=== PATIENT | female | born 1950 | race African-American/Black ===

== ENCOUNTER 2017-05-28 22:09 | Emergency (ER) | payer MEDICARE, OTHER ==
[~2017-05-28] VITALS: Ht 157.5 cm; Wt 58.5 kg
[~2017-05-28 22:09] MED LIST: ALBUAER3 IN; AML5T PO; ASPI-498 OR; CLIN1CAP4 PO; DOCU-137 PO; DOCU60SY2 PO; FUR40T PO; LIS10T PO; LORA-352 PO; LORA1TAB12 PO; MET50T PO; NOR10T PO; PANT1INJ3 PO; POT20T PO; SITA100T7 PO
[2017-05-28 22:33] LABS: Basophils # (auto) 0 uL; Basophils % (auto) 0.6 % (0.0-2.0); CONDITION Y; Eosinophils # (auto) 0.2 uL; Eosinophils % (auto) 2.7 % (0.0-7.0); Hematocrit 47.4 % (36.0-46.0); Lymphocytes % (auto) 24.5 % (10.0-50.0); Mean Corpuscular Hemoglobin 30.5 pg (28.0-32.0); Mean Corpuscular Hgb Conc. 33.7 g/dL (32.0-36.0); Mean Corpuscular Volume 90.5 fL (80.0-100.0); Mean Platelet Volume 8.7 fL (7.4-10.4); Monocytes # (auto) 0.5 uL; Monocytes % (auto) 6.2 % (0.0-12.0); Neutrophils # (auto) 5.4 uL; Platelet Count (auto) 298 10^3/uL (140-450); Red Cell Distribution Width 14.9 % (11.6-16.0); White Blood Cell 8.1 10^3/uL (4.4-10.8)
[2017-05-28 22:56] LABS: Albumin 3.2 g/dL (3.4-5.0); Anion Gap 8 (5-15); Aspartate Aminotransferase 10 U/L (15-37); BUN/Creatinine Ratio 21.9; Blood Urea Nitrogen 16 mg/dL (7-18); Calcium 8.5 mg/dL (8.5-10.1); Carbon Dioxide 25 mmol/L (21-32); Chloride 108 mmol/L (98-107); GFR African American 102 mL/min; GFR Non-African American 85 mL/min; Glucose 179 mg/dL (74-106); Potassium 3.9 mmol/L (3.5-5.1); Sodium 141 mmol/L (136-145)
[2017-05-28] MEDS ORDERED: SODIUM CHLORIDE 0.9% 1,000 ML IV ONE (23:00)
[2017-05-28] MEDS ORDERED: MORPHINE SULF INJ 2 MG/ML SYRINGE 1ML IV ONE (23:00)
[2017-05-28] MEDS ORDERED: ONDANSETRON HCL 4 MG/2 ML VIAL IV ONE (23:00)
[2017-05-28 23:01] LABS: Alkaline Phosphatase 79 U/L (45-117); Bilirubin, Total 0.5 mg/dL (0.2-1.0); Total Protein 6.7 g/dL (6.4-8.2)
[2017-05-28 23:02] LABS: B-Type Natriuretic Peptide 118.46 pg/mL (0-100)
[2017-05-28 23:04] LABS: Temperature: 23.5 C (20.0-25.0)
[2017-05-28 23:38] LABS: Amylase 39 U/L (25-115)
[2017-05-29 00:39] VITALS: BP 144/90
== END 2017-05-29 02:01 | disposition home or self-care (01) ==
LOC: ER 22:11
DX: K59.00 Constipation, unspecified (principal); R07.89 Other chest pain; K21.9 Gastro-esophageal reflux disease without esophagitis; I11.0 Hypertensive heart disease with heart failure; I50.9 Heart failure, unspecified; E11.9 Type 2 diabetes mellitus without complications; R06.02 Shortness of breath; M19.90 Unspecified osteoarthritis, unspecified site; J44.9 Chronic obstructive pulmonary disease, unspecified; I25.10 Atherosclerotic heart disease of native coronary artery without angina pectoris; Z90.710 Acquired absence of both cervix and uterus; F17.210 Nicotine dependence, cigarettes, uncomplicated; Z79.82 Long term (current) use of aspirin; Z88.0 Allergy status to penicillin; Z88.1 Allergy status to other antibiotic agents; Z88.2 Allergy status to sulfonamides; Z79.899 Other long term (current) drug therapy
CPT/HCPCS: 36415; 71010; 74176; 80053; 82150; 83690; 83735; 83880; 84484; 85025; 93005; 96361; 96374; 96375; 99285; J2270; J2405; J7030

== ENCOUNTER 2017-10-02 09:36 | Emergency (ER) | payer MEDICARE, MEDICAID ==
[~2017-10-02] VITALS: Ht 157.5 cm; Wt 58.5 kg
[2017-10-02 12:45] VITALS: BP 140/84
[2017-10-02] MEDS ORDERED: cefTRIAXone SOD 1,000 MG VL IM ONE (13:00)
== END 2017-10-02 13:21 | disposition home or self-care (01) ==
LOC: ER 09:36
DX: S60.321A Blister (nonthermal) of right thumb, initial encounter (principal); I25.10 Atherosclerotic heart disease of native coronary artery without angina pectoris; J44.9 Chronic obstructive pulmonary disease, unspecified; E11.9 Type 2 diabetes mellitus without complications; F17.210 Nicotine dependence, cigarettes, uncomplicated; Z79.82 Long term (current) use of aspirin; Z88.0 Allergy status to penicillin; Z88.1 Allergy status to other antibiotic agents; Z91.041 Radiographic dye allergy status; Z88.2 Allergy status to sulfonamides; W22.8XXA Striking against or struck by other objects, initial encounter; Y93.89 Activity, other specified; Y92.89 Other specified places as the place of occurrence of the external cause; Y99.8 Other external cause status
CPT/HCPCS: 10140; 73140

== ENCOUNTER 2018-04-24 22:48 | Emergency (ER) | payer MEDICARE, MEDICAID ==
[~2018-04-24] VITALS: Ht 157.5 cm; Wt 68.0 kg
[2018-04-25 00:01] LABS: Basophils # (auto) 0 uL; Basophils % (auto) 0.4 % (0.0-2.0); Eosinophils # (auto) 0 uL; Eosinophils % (auto) 0.2 % (0.0-7.0); Hematocrit 49.3 % (36.0-46.0); Hemoglobin 17.2 g/dL (12.2-16.2); Lymphocytes # (auto) 1.4 uL; Lymphocytes % (auto) 12.3 % (10.0-50.0); Mean Corpuscular Hemoglobin 31.2 pg (28.0-32.0); Mean Corpuscular Volume 89.3 fL (80.0-100.0); Monocytes # (auto) 1.2 uL; Monocytes % (auto) 10.2 % (0.0-12.0); Neutrophils # (auto) 8.9 uL; Neutrophils % (auto) 76.9 % (37.0-80.0); Nucleated Red Blood Cells % 0.5 %; Platelet Count (auto) 106 10^3/uL (140-450); Red Blood Cells 5.52 10^6/uL (4.0-5.20); Red Cell Distribution Width 15.2 % (11.8-14.3); White Blood Cell 11.5 10^3/uL (4.4-10.8)
[2018-04-25 00:13] LABS: Alanine Aminotransferase 41 U/L (13-56); Albumin 3.4 g/dL (3.4-5.0); Anion Gap 10 (5-15); Aspartate Aminotransferase 32 U/L (15-37); BUN/Creatinine Ratio 23.8; Blood Urea Nitrogen 19 mg/dL (7-18); Calcium 9.2 mg/dL (8.5-10.1); Carbon Dioxide 29 mmol/L (21-32); Chloride 95 mmol/L (98-107); GFR African American 92 mL/min; GFR Non-African American 76 mL/min; Glucose 225 mg/dL (74-106); Magnesium 1.8 mg/dL (1.6-2.6); Potassium 4.1 mmol/L (3.5-5.1); Sodium 134 mmol/L (136-145)
[2018-04-25] MEDS ORDERED: ALBUTEROL SULF 2.5 MG/0.5ML(0.5%) NEB SOLN NEB ONE (00:15)
[2018-04-25] MEDS ORDERED: METOPROLOL TARTRATE 25 MG TAB PO ONE (00:15)
[2018-04-25] MEDS ORDERED: cefTRIAXone 1GM/10ml IVPUSH 10 ML IV ONE (00:15)
[2018-04-25] MEDS ORDERED: MAGNESIUM SULFATE 1GM/100ML 100 ML IV SCH (00:15)
[2018-04-25] MEDS ORDERED: methylPREDNISolone SOD SUCC 125 MG/2 ML VL IV ONE (00:15)
[2018-04-25] MEDS ORDERED: IPRATROPIUM BROM 0.5 MG/2.5ML INH SOL NEB ONE (00:15)
[2018-04-25 00:18] LABS: Alkaline Phosphatase 88 U/L (45-117); Bilirubin, Total 1.5 mg/dL (0.2-1.0); Total Protein 7.7 g/dL (6.4-8.2)
[2018-04-25 01:11] VITALS: BP 138/85
[2018-04-29] MEDS ORDERED: ALBUAER3 IN (11:04)
[2018-06-01] MEDS ORDERED: HYDR-4683 PO (09:45)
[2018-06-01] MEDS ORDERED: LEVO500T21 PO (09:47)
[2018-06-01] MEDS ORDERED: ALBUAER3 IN (09:47)
[2018-06-03] MEDS ORDERED: DOXY-216 PO (14:28)
[2018-06-03] MEDS ORDERED: SACC250C PO (14:28)
== END 2018-04-25 02:37 | disposition home or self-care (01) ==
LOC: ER 22:50
DX: J44.1 Chronic obstructive pulmonary disease with (acute) exacerbation (principal); I10 Essential (primary) hypertension; F41.9 Anxiety disorder, unspecified; E11.9 Type 2 diabetes mellitus without complications; Z86.73 Personal history of transient ischemic attack (TIA), and cerebral infarction without residual deficits; Z90.710 Acquired absence of both cervix and uterus; Z90.89 Acquired absence of other organs
CPT/HCPCS: 36415; 71045; 80053; 83735; 83880; 84484; 85025; 93005; 94640; 96365; 96375; 99285; J2930; J3475; J0696

== ENCOUNTER 2018-04-25 07:54 | Inpatient (IN) | payer MEDICARE, MEDICAID ==
[~2018-04-25] VITALS: Ht 162.6 cm; Wt 47.6 kg
[2018-04-25] MEDS ORDERED: LEVOFLOXACIN 500MG 100 ML IV ONE (08:45)
[2018-04-25] MEDS ORDERED: IPRATROPIUM BROM 0.5 MG/2.5ML INH SOL HHN ONE (08:45)
[2018-04-25] MEDS ORDERED: methylPREDNISolone SOD SUCC 125 MG/2 ML VL IV ONE (08:45)
[2018-04-25] MEDS ORDERED: ALBUTEROL SULF 2.5 MG/0.5ML(0.5%) NEB SOLN HHN ONE (08:45)
[2018-04-25 08:54] LABS: Basophils # (auto) 0 uL; Basophils % (auto) 0.6 % (0.0-2.0); Eosinophils # (auto) 0 uL; Hematocrit 49.5 % (36.0-46.0); Hemoglobin 16.9 g/dL (12.2-16.2); Lymphocytes # (auto) 0.7 uL; Lymphocytes % (auto) 8.5 % (10.0-50.0); Mean Corpuscular Hemoglobin 30.5 pg (28.0-32.0); Mean Corpuscular Hgb Conc. 34.2 g/dL (32.0-36.0); Mean Corpuscular Volume 89.3 fL (80.0-100.0); Monocytes # (auto) 0.2 uL; Monocytes % (auto) 2.3 % (0.0-12.0); Neutrophils # (auto) 7.1 uL; Neutrophils % (auto) 88.6 % (37.0-80.0); Nucleated Red Blood Cells % 0.1 %; Red Blood Cells 5.54 10^6/uL (4.0-5.20); Red Cell Distribution Width 15.1 % (11.8-14.3)
[2018-04-25 09:05] LABS: Albumin 3.4 g/dL (3.4-5.0); Anion Gap 13 (5-15); BUN/Creatinine Ratio 25.5; Blood Urea Nitrogen 25 mg/dL (7-18); Calcium 8.9 mg/dL (8.5-10.1); Carbon Dioxide 27 mmol/L (21-32); Chloride 93 mmol/L (98-107); GFR African American 73 mL/min; GFR Non-African American 60 mL/min; Glucose 375 mg/dL (74-106); Potassium 4.3 mmol/L (3.5-5.1); Sodium 133 mmol/L (136-145)
[2018-04-25 09:14] LABS: Alanine Aminotransferase 44 U/L (13-56); Alkaline Phosphatase 83 U/L (45-117); Aspartate Aminotransferase 30 U/L (15-37); Bilirubin, Total 1.1 mg/dL (0.2-1.0); Total Protein 7.6 g/dL (6.4-8.2)
[2018-04-25 09:33] LABS: Urine Bacteria FEW /hpf (None Seen); Urine Blood Negative /uL (Negative); Urine Specific Gravity 1.011 (1.001-1.035); Urine WBC <1 /hpf (0 - 5)
[2018-04-25] MEDS ORDERED: ACETAMINOPHEN 325 MG TAB PO PRN (09:45)
[2018-04-25] MEDS ORDERED: HYDROcodone-ACET 10/325MG TAB PO ONE (09:45)
[2018-04-25] MEDS ORDERED: NITROGLYCERIN 0.4 MG SL TAB SL PRN ×2 (09:45)
[2018-04-25] MEDS ORDERED: ALUM & MAG HYDROX-SIMETH LIQ(MAALOX) 30 ML PO ONE (09:45)
[2018-04-25] MEDS ORDERED: cefTRIAXone 1GM/10ml IVPUSH 10 ML IV ONE (09:45)
[2018-04-25] MEDS ORDERED: MORPHINE SULFATE 8mg/ml INJ SDV IV PRN ×2 (09:45)
[2018-04-25] MEDS ORDERED: DEXTROSE (50%) 50ML SYRG IV PRN ×3 (09:45→13:00)
[2018-04-25] MEDS: PATIENTS OWN MEDICATION PO SCH (10:00)
[2018-04-25 10:09] VITALS: BP 131/83
[2018-04-25] MEDS: ASPirin 81 mg TAB PO SCH (10:15)
[2018-04-25] MEDS: DOCUSATE SOD 100 MG CAP PO SCH (10:16)
[2018-04-25] MEDS: METOPROLOL TARTRATE 25 MG TAB PO SCH ×2 (10:16→21:30)
[2018-04-25] MEDS: LORATADINE 10 MG TAB PO SCH (10:16)
[2018-04-25] MEDS: amLODIPine BESYLATE 5 MG TAB PO SCH (10:16)
[2018-04-25] MEDS: LISINOPRIL 10 MG TAB PO SCH (10:17)
[2018-04-25] MEDS: CLOPIDOGREL BISULFATE 75 MG TAB PO SCH (10:17)
[2018-04-25] MEDS: PANTOPRAZOLE 40 MG TAB PO SCH (10:17)
[2018-04-25 10:45] LABS: Platelet Count (auto) 105 10^3/uL (140-450)
[2018-04-25] MEDS: FUROSEMIDE 40 MG TAB PO SCH (11:23)
[2018-04-25] MEDS: ALBUTEROL SULF 2.5 MG/0.5ML(0.5%) NEB SOLN NEB SCH ×3 (11:24→23:29)
[2018-04-25] MEDS: IPRATROPIUM BROM 0.5 MG/2.5ML INH SOL NEB SCH ×3 (11:25→23:29)
[2018-04-25] MEDS ORDERED: ACCU-CHEK COMFORT CURVE STRIP VI SCH ×2 (11:30→11:45)
[2018-04-25] MEDS ORDERED: InsuLIN REG 1unit/0.01ml Soln (100units/ml) SC SCH ×3 (11:30→22:00)
[2018-04-25 12:00] VITALS: BP 100/65
[2018-04-25] MEDS ORDERED: PNEUMOCOCCAL VACC POLYS 25 MCG/0.5 ML VIAL IM ONE (12:30)
[2018-04-25] MEDS: HYDROcodone-ACET 10/325MG TAB PO PRN (13:52)
[2018-04-25] MEDS: SODIUM CHLOR 0.9% PF (SALINE LOCK) 10ML VIAL/SYR IV SCH ×2 (14:45→21:30)
[2018-04-25 14:51] LABS: Lactic Acid w/Reflex 6.5 mmol/L (0.4-2.0)
[2018-04-25] MEDS: ACCU-CHEK COMFORT CURVE STRIP VI SCH ×2 (16:33→20:03)
[2018-04-25] MEDS: InsuLIN REG 1unit/0.01ml Soln (100units/ml) SC SCH ×2 (16:33→20:03)
[2018-04-25 16:58] VITALS: BP 132/81
[2018-04-25] MEDS ORDERED: InsuLIN REG 1unit/0.01ml Soln (100units/ml) SC ONE (18:45)
[2018-04-25] MEDS: ONDANSETRON HCL 4 MG/2 ML VIAL IV PRN (20:13)
[2018-04-25] MEDS: ATORVASTATIN 20 MG TAB PO SCH (21:29)
[2018-04-25] MEDS: ZOLPIDEM TARTRATE 5 MG TAB PO PRN (21:30)
[2018-04-25 22:00] VITALS: BP 110/73
[2018-04-26] VITALS (7 sets, daily range): BP systolic 94–120; BP diastolic 57–71
[2018-04-26] MEDS: ACCU-CHEK COMFORT CURVE STRIP VI SCH ×6 (00:10→20:26)
[2018-04-26] MEDS: InsuLIN REG 1unit/0.01ml Soln (100units/ml) SC SCH ×6 (03:58→20:25)
[2018-04-26] MEDS: ALBUTEROL SULF 2.5 MG/0.5ML(0.5%) NEB SOLN NEB SCH ×3 (05:50→18:53)
[2018-04-26] MEDS: IPRATROPIUM BROM 0.5 MG/2.5ML INH SOL NEB SCH ×3 (05:50→18:53)
[2018-04-26 06:37] LABS: Basophils # (auto) 0 uL; Basophils % (auto) 0.2 % (0.0-2.0); Eosinophils # (auto) 0 uL; Eosinophils % (auto) 0.1 % (0.0-7.0); Hemoglobin 14.9 g/dL (12.2-16.2); Lymphocytes # (auto) 0.9 uL; Lymphocytes % (auto) 7.8 % (10.0-50.0); Mean Corpuscular Hemoglobin 31.2 pg (28.0-32.0); Mean Corpuscular Hgb Conc. 34.6 g/dL (32.0-36.0); Mean Corpuscular Volume 90.1 fL (80.0-100.0); Monocytes # (auto) 1.6 uL; Monocytes % (auto) 13.1 % (0.0-12.0); Neutrophils # (auto) 9.5 uL; Neutrophils % (auto) 78.8 % (37.0-80.0); Nucleated Red Blood Cells % 0.3 %; Platelet Count (auto) 105 10^3/uL (140-450); Red Blood Cells 4.78 10^6/uL (4.0-5.20); Red Cell Distribution Width 15.2 % (11.8-14.3); White Blood Cell 12.1 10^3/uL (4.4-10.8)
[2018-04-26] MEDS: SODIUM CHLOR 0.9% PF (SALINE LOCK) 10ML VIAL/SYR IV SCH ×3 (06:52→23:06)
[2018-04-26 06:58] LABS: Albumin 3.1 g/dL (3.4-5.0); BUN/Creatinine Ratio 31.2; Bilirubin, Total 0.5 mg/dL (0.2-1.0); Calcium 8.6 mg/dL (8.5-10.1); Magnesium 2.4 mg/dL (1.6-2.6); Potassium 4.1 mmol/L (3.5-5.1); Total Protein 6.7 g/dL (6.4-8.2)
[2018-04-26] MEDS ORDERED: cefTRIAXone 1GM/10ml IVPUSH 10 ML IV SCH (09:00)
[2018-04-26] MEDS ORDERED: LEVOFLOXACIN 500MG 100 ML IV SCH (10:00)
[2018-04-26] MEDS: PATIENTS OWN MEDICATION PO SCH (10:00)
[2018-04-26] MEDS: PANTOPRAZOLE 40 MG TAB PO SCH (10:22)
[2018-04-26] MEDS: ASPirin 81 mg TAB PO SCH (10:22)
[2018-04-26] MEDS: METOPROLOL TARTRATE 25 MG TAB PO SCH ×2 (10:23→23:06)
[2018-04-26] MEDS: CLOPIDOGREL BISULFATE 75 MG TAB PO SCH (10:23)
[2018-04-26] MEDS: LISINOPRIL 10 MG TAB PO SCH (10:23)
[2018-04-26] MEDS: FUROSEMIDE 40 MG TAB PO SCH (10:23)
[2018-04-26] MEDS: DOCUSATE SOD 100 MG CAP PO SCH ×2 (10:23→23:05)
[2018-04-26] MEDS: LORATADINE 10 MG TAB PO SCH (10:24)
[2018-04-26] MEDS: amLODIPine BESYLATE 5 MG TAB PO SCH (10:24)
[2018-04-26] MEDS: HYDROcodone-ACET 10/325MG TAB PO PRN ×3 (10:25→23:05)
[2018-04-26] MEDS: ONDANSETRON HCL 4 MG/2 ML VIAL IV PRN ×2 (12:04→19:04)
[2018-04-26] MEDS ORDERED: LACTULOSE 20Gm/30ML SOLN PO PRN (16:15)
[2018-04-26] MEDS: SODIUM CHLORIDE 0.9% 1,000 ML IV SCH (17:17)
[2018-04-26] MEDS: ZOLPIDEM TARTRATE 5 MG TAB PO PRN (23:04)
[2018-04-26] MEDS: ATORVASTATIN 20 MG TAB PO SCH (23:05)
[2018-04-27] MEDS: ALBUTEROL SULF 2.5 MG/0.5ML(0.5%) NEB SOLN NEB SCH ×5 (00:20→22:29)
[2018-04-27] MEDS: IPRATROPIUM BROM 0.5 MG/2.5ML INH SOL NEB SCH ×5 (00:20→22:29)
[2018-04-27] MEDS: ONDANSETRON HCL 4 MG/2 ML VIAL IV PRN (02:13)
[2018-04-27] MEDS: LORazepam 0.5 MG TAB PO PRN ×2 (03:56→20:08)
[2018-04-27] MEDS: ACCU-CHEK COMFORT CURVE STRIP VI SCH ×5 (04:04→22:05)
[2018-04-27] MEDS: InsuLIN REG 1unit/0.01ml Soln (100units/ml) SC SCH ×5 (04:17→22:06)
[2018-04-27 05:47] VITALS: BP 104/66
[2018-04-27] MEDS: SODIUM CHLOR 0.9% PF (SALINE LOCK) 10ML VIAL/SYR IV SCH ×3 (06:15→22:20)
[2018-04-27] MEDS: HYDROcodone-ACET 10/325MG TAB PO PRN ×3 (06:44→23:02)
[2018-04-27 07:00] LABS: Basophils # (auto) 0 uL; Basophils % (auto) 0.2 % (0.0-2.0); Eosinophils # (auto) 0 uL; Eosinophils % (auto) 0.3 % (0.0-7.0); Hematocrit 43.7 % (36.0-46.0); Lymphocytes # (auto) 1.8 uL; Mean Corpuscular Hgb Conc. 34.3 g/dL (32.0-36.0); Mean Corpuscular Volume 90.6 fL (80.0-100.0); Monocytes % (auto) 11.3 % (0.0-12.0); Neutrophils % (auto) 68.2 % (37.0-80.0); Nucleated Red Blood Cells % 0.3 %; Platelet Count (auto) 109 10^3/uL (140-450); Red Blood Cells 4.83 10^6/uL (4.0-5.20); Red Cell Distribution Width 15.7 % (11.8-14.3); White Blood Cell 8.8 10^3/uL (4.4-10.8)
[2018-04-27 07:23] LABS: BUN/Creatinine Ratio 40.6; Calcium 8.1 mg/dL (8.5-10.1)
[2018-04-27] MEDS: SODIUM CHLORIDE 0.9% 1,000 ML IV SCH (08:55)
[2018-04-27 09:00] VITALS: BP 105/71
[2018-04-27] MEDS: PANTOPRAZOLE 40 MG TAB PO SCH (09:58)
[2018-04-27] MEDS: ASPirin 81 mg TAB PO SCH (09:58)
[2018-04-27] MEDS: DOCUSATE SOD 100 MG CAP PO SCH ×2 (09:59→22:18)
[2018-04-27] MEDS: METOPROLOL TARTRATE 25 MG TAB PO SCH ×2 (09:59→22:20)
[2018-04-27] MEDS: LORATADINE 10 MG TAB PO SCH (09:59)
[2018-04-27] MEDS: LISINOPRIL 10 MG TAB PO SCH (10:00)
[2018-04-27] MEDS: amLODIPine BESYLATE 5 MG TAB PO SCH (10:00)
[2018-04-27] MEDS: FUROSEMIDE 40 MG TAB PO SCH (10:00)
[2018-04-27] MEDS: PATIENTS OWN MEDICATION PO SCH (10:00)
[2018-04-27] MEDS ORDERED: DEXTROSE (50%) 50ML SYRG IV PRN (12:15)
[2018-04-27] MEDS ORDERED: methylPREDNISolone SOD SUCC 40 MG/ML VL IV ONE (12:15)
[2018-04-27] MEDS ORDERED: LORazepam 2MG/ML-1ML VIAL IV ONE (12:45)
[2018-04-27 13:00] VITALS: BP 103/70
[2018-04-27] MEDS ORDERED: ENOXAPARIN SOD 30 MG/0.3 ML SYRINGE SC ONE (13:00)
[2018-04-27 17:00] VITALS: BP 117/74
[2018-04-27 22:00] VITALS: BP 97/71
[2018-04-27] MEDS: ATORVASTATIN 20 MG TAB PO SCH (22:18)
[2018-04-27] MEDS: methylPREDNISolone SOD SUCC 40 MG/ML VL IV SCH (22:19)
[2018-04-28] MEDS: ZOLPIDEM TARTRATE 5 MG TAB PO PRN ×2 (00:03→21:20)
[2018-04-28] MEDS: IPRATROPIUM BROM 0.5 MG/2.5ML INH SOL NEB SCH ×5 (02:16→21:56)
[2018-04-28] MEDS: ALBUTEROL SULF 2.5 MG/0.5ML(0.5%) NEB SOLN NEB SCH ×5 (02:16→21:56)
[2018-04-28] MEDS: LORazepam 0.5 MG TAB PO PRN (04:32)
[2018-04-28 05:06] VITALS: BP 114/70
[2018-04-28] MEDS: InsuLIN REG 1unit/0.01ml Soln (100units/ml) SC SCH ×4 (06:10→21:30)
[2018-04-28] MEDS: SODIUM CHLOR 0.9% PF (SALINE LOCK) 10ML VIAL/SYR IV SCH ×3 (06:10→21:10)
[2018-04-28] MEDS: ACCU-CHEK COMFORT CURVE STRIP VI SCH ×4 (06:11→21:10)
[2018-04-28] MEDS: SODIUM CHLORIDE 0.9% 1,000 ML IV SCH (06:25)
[2018-04-28] MEDS: ONDANSETRON HCL 4 MG/2 ML VIAL IV PRN (08:28)
[2018-04-28] MEDS: HYDROcodone-ACET 10/325MG TAB PO PRN ×3 (08:28→21:36)
[2018-04-28 09:00] VITALS: BP 151/89
[2018-04-28 09:18] LABS: BUN/Creatinine Ratio 40.5; Calcium 8.9 mg/dL (8.5-10.1); Potassium 4.7 mmol/L (3.5-5.1)
[2018-04-28] MEDS: LISINOPRIL 10 MG TAB PO SCH (10:00)
[2018-04-28] MEDS: ENOXAPARIN SOD 30 MG/0.3 ML SYRINGE SC SCH (10:00)
[2018-04-28] MEDS: PATIENTS OWN MEDICATION PO SCH (10:00)
[2018-04-28] MEDS: amLODIPine BESYLATE 5 MG TAB PO SCH (10:00)
[2018-04-28] MEDS: methylPREDNISolone SOD SUCC 40 MG/ML VL IV SCH ×2 (10:22→21:09)
[2018-04-28] MEDS: LORATADINE 10 MG TAB PO SCH (10:23)
[2018-04-28] MEDS: DOCUSATE SOD 100 MG CAP PO SCH ×2 (10:24→21:10)
[2018-04-28] MEDS: PANTOPRAZOLE 40 MG TAB PO SCH (10:24)
[2018-04-28] MEDS: ASPirin 81 mg TAB PO SCH (10:25)
[2018-04-28] MEDS: METOPROLOL TARTRATE 25 MG TAB PO SCH ×2 (10:30→21:29)
[2018-04-28] MEDS: FUROSEMIDE 40 MG TAB PO SCH (10:31)
[2018-04-28] MEDS ORDERED: SODIUM CHLORIDE 0.9% 1,000 ML IV SCH (11:15)
[2018-04-28 13:00] VITALS: BP 138/84
[2018-04-28 17:00] VITALS: BP 126/92
[2018-04-28] MEDS: ATORVASTATIN 20 MG TAB PO SCH (21:10)
[2018-04-28 22:00] VITALS: BP 123/71
[2018-04-29] MEDS: LORazepam 0.5 MG TAB PO PRN ×2 (02:09→11:05)
[2018-04-29] MEDS: IPRATROPIUM BROM 0.5 MG/2.5ML INH SOL NEB SCH ×3 (02:44→10:46)
[2018-04-29] MEDS: ALBUTEROL SULF 2.5 MG/0.5ML(0.5%) NEB SOLN NEB SCH ×3 (02:44→10:46)
[2018-04-29 05:59] VITALS: BP 128/69
[2018-04-29] MEDS: SODIUM CHLOR 0.9% PF (SALINE LOCK) 10ML VIAL/SYR IV SCH (06:14)
[2018-04-29] MEDS: ACCU-CHEK COMFORT CURVE STRIP VI SCH (06:15)
[2018-04-29] MEDS: InsuLIN REG 1unit/0.01ml Soln (100units/ml) SC SCH (06:15)
[2018-04-29] MEDS: HYDROcodone-ACET 10/325MG TAB PO PRN (08:09)
[2018-04-29 09:00] VITALS: BP 137/86
[2018-04-29] MEDS: PATIENTS OWN MEDICATION PO SCH (10:00)
[2018-04-29] MEDS: methylPREDNISolone SOD SUCC 40 MG/ML VL IV SCH (10:47)
[2018-04-29] MEDS: ENOXAPARIN SOD 30 MG/0.3 ML SYRINGE SC SCH (10:47)
[2018-04-29] MEDS: DOCUSATE SOD 100 MG CAP PO SCH (10:47)
[2018-04-29] MEDS: ASPirin 81 mg TAB PO SCH (10:48)
[2018-04-29] MEDS: amLODIPine BESYLATE 5 MG TAB PO SCH (10:48)
[2018-04-29] MEDS: FUROSEMIDE 40 MG TAB PO SCH (10:49)
[2018-04-29] MEDS: METOPROLOL TARTRATE 25 MG TAB PO SCH (10:49)
[2018-04-29] MEDS: LORATADINE 10 MG TAB PO SCH (10:49)
[2018-04-29] MEDS: LISINOPRIL 10 MG TAB PO SCH (10:49)
[2018-04-29] MEDS ORDERED: ALBUAER3 IN (11:04)
== END 2018-04-29 13:50 | disposition home or self-care (01) | DRG 189 ==
LOC: ER 07:54 → EDBD 07:54 → TELE-CENTR 07:55
PROVIDERS: ADMIT Internal Medicine; ATTEND Internal Medicine
DX: J96.01 Acute respiratory failure with hypoxia (principal); E11.21 Type 2 diabetes mellitus with diabetic nephropathy; D75.1 Secondary polycythemia; E11.22 Type 2 diabetes mellitus with diabetic chronic kidney disease; E11.65 Type 2 diabetes mellitus with hyperglycemia; I13.0 Hypertensive heart and chronic kidney disease with heart failure and stage 1 through stage 4 chronic kidney disease, or unspecified chronic kidney disease; I50.32 Chronic diastolic (congestive) heart failure; N39.0 Urinary tract infection, site not specified; J44.1 Chronic obstructive pulmonary disease with (acute) exacerbation; E87.1 Hypo-osmolality and hyponatremia; J44.0 Chronic obstructive pulmonary disease with (acute) lower respiratory infection; R07.89 Other chest pain; I25.10 Atherosclerotic heart disease of native coronary artery without angina pectoris; F17.200 Nicotine dependence, unspecified, uncomplicated; F41.9 Anxiety disorder, unspecified; G89.29 Other chronic pain; I25.2 Old myocardial infarction; J20.9 Acute bronchitis, unspecified; K59.00 Constipation, unspecified; M19.90 Unspecified osteoarthritis, unspecified site; N18.9 Chronic kidney disease, unspecified; Z79.4 Long term (current) use of insulin; Z90.710 Acquired absence of both cervix and uterus; Z83.3 Family history of diabetes mellitus; Z79.891 Long term (current) use of opiate analgesic; Z80.9 Family history of malignant neoplasm, unspecified
CPT/HCPCS: 36415; 36600; 71046; 78582; 80048; 80053; 80061; 81001; 82805; 82947; 82962; 83036; 83605; 83735; 83880; 84443; 84484; 85025; 85379; 87040; 87081; 87086; 93306; 94640; 94644; 94761; 96365; 96375; J1815; J1956; J2405

== ENCOUNTER 2018-05-10 00:39 | Emergency (ER) | payer MEDICARE, MEDICAID ==
[~2018-05-10] VITALS: Ht 157.5 cm; Wt 56.7 kg
[2018-05-10 01:18] LABS: Basophils # (auto) 0.1 uL; Basophils % (auto) 0.8 % (0.0-2.0); Eosinophils # (auto) 0.2 uL; Eosinophils % (auto) 1.5 % (0.0-7.0); Hematocrit 41.3 % (36.0-46.0); Lymphocytes # (auto) 1.8 uL; Lymphocytes % (auto) 15.2 % (10.0-50.0); Mean Corpuscular Volume 91.2 fL (80.0-100.0); Monocytes # (auto) 0.7 uL; Monocytes % (auto) 6.3 % (0.0-12.0); Neutrophils # (auto) 8.8 uL; Neutrophils % (auto) 76.2 % (37.0-80.0); Nucleated Red Blood Cells % 0.1 %; Platelet Count (auto) 382 10^3/uL (140-450); Red Blood Cells 4.53 10^6/uL (4.0-5.20); Red Cell Distribution Width 14.3 % (11.8-14.3); White Blood Cell 11.5 10^3/uL (4.4-10.8)
[2018-05-10 01:38] LABS: Alanine Aminotransferase 31 U/L (13-56); Albumin 2.7 g/dL (3.4-5.0); Anion Gap 6 (5-15); Aspartate Aminotransferase 12 U/L (15-37); BUN/Creatinine Ratio 28.8; Blood Urea Nitrogen 32 mg/dL (7-18); Calcium 8.3 mg/dL (8.5-10.1); Carbon Dioxide 28 mmol/L (21-32); Chloride 105 mmol/L (98-107); GFR African American 63 mL/min; GFR Non-African American 52 mL/min; Glucose 240 mg/dL (74-106); Magnesium 2.2 mg/dL (1.6-2.6); Potassium 3.9 mmol/L (3.5-5.1); Sodium 139 mmol/L (136-145)
[2018-05-10 01:43] LABS: Alkaline Phosphatase 93 U/L (45-117); Bilirubin, Total 0.3 mg/dL (0.2-1.0); Total Protein 6.2 g/dL (6.4-8.2)
[2018-05-10 03:39] VITALS: BP 135/77
[2018-05-10 05:03] LABS: Urine Bacteria FEW /hpf (None Seen); Urine Blood Negative /uL (Negative); Urine Mucus FEW (None Seen); Urine Specific Gravity 1.011 (1.001-1.035); Urine WBC <1 /hpf (0 - 5)
== END 2018-05-10 06:24 | disposition left against medical advice (07) ==
LOC: ER 00:39
DX: R07.89 Other chest pain (principal); Z53.21 Procedure and treatment not carried out due to patient leaving prior to being seen by health care provider
CPT/HCPCS: 36415; 71045; 80053; 81001; 83735; 83880; 84484; 85025; 93005

== ENCOUNTER 2018-08-10 10:23 | Emergency (ER) | payer MEDICARE, MEDICAID ==
[~2018-08-10] VITALS: Ht 157.5 cm; Wt 56.2 kg
[~2018-08-10 10:23] MED LIST changes: -ASPI-498 OR; -CLIN1CAP4 PO; -DOCU-137 PO; +DOCU1CAP54 PO; -DOCU60SY2 PO; -LORA-352 PO; -MET50T PO
[2018-08-10] MEDS ORDERED: LEVOFLOXACIN 500MG 100 ML IV ONE (10:45)
[2018-08-10] MEDS ORDERED: IPRATROPIUM BROM 0.5 MG/2.5ML INH SOL NEB ONE (10:45)
[2018-08-10] MEDS ORDERED: ALBUTEROL SULF 2.5 MG/0.5ML(0.5%) NEB SOLN NEB ONE (10:45)
[2018-08-10] MEDS ORDERED: methylPREDNISolone SOD SUCC 125 MG/2 ML VL IV ONE (10:45)
[2018-08-10 11:30] VITALS: BP 120/81
[2018-08-10] MEDS ORDERED: KETOROLAC TROMETH 30 MG/ML 1ML VIAL IV ONE (11:45)
[2018-08-10 11:51] LABS: Basophils # (auto) 0 uL; Basophils % (auto) 0.5 % (0.0-2.0); Eosinophils # (auto) 0.2 uL; Eosinophils % (auto) 2.1 % (0.0-7.0); Hematocrit 44.6 % (36.0-46.0); Hemoglobin 14.9 g/dL (12.2-16.2); Lymphocytes # (auto) 1.3 uL; Lymphocytes % (auto) 16.3 % (10.0-50.0); Mean Corpuscular Hemoglobin 31.2 pg (28.0-32.0); Mean Corpuscular Hgb Conc. 33.4 g/dL (32.0-36.0); Mean Corpuscular Volume 93.4 fL (80.0-100.0); Monocytes # (auto) 0.6 uL; Monocytes % (auto) 7.2 % (0.0-12.0); Neutrophils # (auto) 5.9 uL; Neutrophils % (auto) 73.9 % (37.0-80.0); Platelet Count (auto) 278 10^3/uL (140-450); Red Blood Cells 4.77 10^6/uL (4.0-5.20); Red Cell Distribution Width 15.7 % (11.8-14.3)
[2018-08-10 12:19] LABS: Alanine Aminotransferase 24 U/L (13-56); Albumin 3.4 g/dL (3.4-5.0); Anion Gap 7 (5-15); Aspartate Aminotransferase 13 U/L (15-37); BUN/Creatinine Ratio 21.1; Blood Urea Nitrogen 16 mg/dL (7-18); Calcium 8.7 mg/dL (8.5-10.1); Carbon Dioxide 27 mmol/L (21-32); Chloride 105 mmol/L (98-107); GFR African American 97 mL/min; GFR Non-African American 80 mL/min; Glucose 150 mg/dL (74-106); Magnesium 2.1 mg/dL (1.6-2.6); Potassium 3.5 mmol/L (3.5-5.1); Sodium 139 mmol/L (136-145)
[2018-08-10 12:24] LABS: Alkaline Phosphatase 70 U/L (45-117); Bilirubin, Total 0.7 mg/dL (0.2-1.0); Total Protein 6.9 g/dL (6.4-8.2)
[2018-08-26] MEDS ORDERED: METO25TA62 PO (10:25)
== END 2018-08-10 14:28 | disposition home or self-care (01) ==
LOC: ER 10:23
DX: J44.1 Chronic obstructive pulmonary disease with (acute) exacerbation (principal); M19.90 Unspecified osteoarthritis, unspecified site; I25.10 Atherosclerotic heart disease of native coronary artery without angina pectoris; E11.9 Type 2 diabetes mellitus without complications; I10 Essential (primary) hypertension; F17.210 Nicotine dependence, cigarettes, uncomplicated; Z90.49 Acquired absence of other specified parts of digestive tract; Z90.710 Acquired absence of both cervix and uterus
CPT/HCPCS: 36415; 71045; 80053; 83735; 83880; 84484; 85025; 93005; 94640; 96365; 96375; 99285; J1885; J1956; J2930; J7611; J7644

== ENCOUNTER 2018-10-14 15:58 | Observation (INO) | payer MEDICARE, MEDICAID ==
[~2018-10-14] VITALS: Ht 157.5 cm; Wt 56.2 kg
[~2018-10-14 15:58] MED LIST changes: -DOCU1CAP54 PO; -LIS10T PO; +METO25TA62 PO; -PANT1INJ3 PO; -SITA100T7 PO
[2018-10-14 17:09] LABS: Basophils # (auto) 0.1 uL; Basophils % (auto) 1.1 % (0.0-2.0); Eosinophils # (auto) 0.2 uL; Eosinophils % (auto) 2.2 % (0.0-7.0); Hematocrit 45.1 % (36.0-46.0); Hemoglobin 15.1 g/dL (12.2-16.2); Lymphocytes # (auto) 1.9 uL; Lymphocytes % (auto) 19.7 % (10.0-50.0); Mean Corpuscular Hemoglobin 30.8 pg (28.0-32.0); Mean Corpuscular Hgb Conc. 33.5 g/dL (32.0-36.0); Monocytes # (auto) 0.7 uL; Monocytes % (auto) 7.4 % (0.0-12.0); Neutrophils # (auto) 6.8 uL; Neutrophils % (auto) 69.6 % (37.0-80.0); Nucleated Red Blood Cells % 0.1 %; Platelet Count (auto) 264 10^3/uL (140-450); Red Cell Distribution Width 14.1 % (11.8-14.3); White Blood Cell 9.8 10^3/uL (4.4-10.8)
[2018-10-14 17:15] LABS: INR 0.93 (0.9-1.15); Partial Thromboplastin Time 26.3 sec (23.78-33.04)
[2018-10-14 17:19] LABS: Albumin 3.3 g/dL (3.4-5.0); BUN/Creatinine Ratio 23.9; Calcium 8.8 mg/dL (8.5-10.1); Magnesium 2.2 mg/dL (1.6-2.6); Potassium 4.2 mmol/L (3.5-5.1)
[2018-10-14 17:24] LABS: Bilirubin, Total 0.4 mg/dL (0.2-1.0); Total Protein 6.7 g/dL (6.4-8.2)
[2018-10-14] MEDS ORDERED: ONDANSETRON HCL 4 MG/2 ML VIAL IV ONE (17:45)
[2018-10-14] MEDS ORDERED: MORPHINE SULFATE 4 MG/ML SYR/VIAL IV ONE (17:45)
[2018-10-14 18:22] LABS: Urine Bacteria FEW /hpf (None Seen); Urine Blood Negative /uL (Negative); Urine Specific Gravity 1.012 (1.001-1.035); Urine WBC 1 /hpf (0 - 5)
[2018-10-14] MEDS ORDERED: IPRATROPIUM BROM 0.5 MG/2.5ML INH SOL NEB ONE (19:00)
[2018-10-14] MEDS ORDERED: ALBUTEROL SULF 2.5 MG/0.5ML(0.5%) NEB SOLN NEB ONE (19:00)
[2018-10-14] MEDS ORDERED: ACETAMINOPHEN 325 MG TAB PO ONE (19:45)
[2018-10-14 20:34] VITALS: BP 163/94
== END 2018-10-14 21:48 | disposition home or self-care (01) | DRG 446 ==
LOC: ER 16:03 → OVERFLOW 16:45 → ER 21:48
PROVIDERS: ADMIT Family Medicine; ATTEND Family Medicine
DX: K82.8 Other specified diseases of gallbladder (principal); K29.70 Gastritis, unspecified, without bleeding; F41.9 Anxiety disorder, unspecified; I11.0 Hypertensive heart disease with heart failure; I50.9 Heart failure, unspecified; E11.9 Type 2 diabetes mellitus without complications; J44.9 Chronic obstructive pulmonary disease, unspecified; F17.210 Nicotine dependence, cigarettes, uncomplicated; R11.2 Nausea with vomiting, unspecified; Z88.0 Allergy status to penicillin; Z88.2 Allergy status to sulfonamides
CPT/HCPCS: 36415; 76705; 80053; 81001; 82150; 83690; 83735; 85025; 85610; 85730; 93005; 94761; 96374; 96375; 99285; G0378; J2270; J2405; J7611; J7644

== ENCOUNTER 2019-03-29 15:37 | Emergency (ER) | payer MEDICARE, MEDICAID ==
[~2019-03-29] VITALS: Ht 154.9 cm; Wt 56.2 kg
[2019-03-29 16:04] VITALS: BP 164/95
== END 2019-03-29 17:31 | disposition home or self-care (01) ==
LOC: ER 15:37
DX: L03.032 Cellulitis of left toe (principal); J44.9 Chronic obstructive pulmonary disease, unspecified; E11.9 Type 2 diabetes mellitus without complications; I11.0 Hypertensive heart disease with heart failure; I50.9 Heart failure, unspecified; F17.210 Nicotine dependence, cigarettes, uncomplicated; Z88.8 Allergy status to other drugs, medicaments and biological substances; Z88.0 Allergy status to penicillin; Z88.2 Allergy status to sulfonamides; Z79.899 Other long term (current) drug therapy; Z90.49 Acquired absence of other specified parts of digestive tract; Z90.710 Acquired absence of both cervix and uterus
CPT/HCPCS: 73630

== ENCOUNTER 2019-06-14 14:43 | Inpatient (IN) | payer OTHER, MEDICAID ==
[~2019-06-14] VITALS: Ht 154.9 cm; Wt 58.8 kg
[2019-06-14] MEDS ORDERED: methylPREDNISolone SOD SUCC 125 MG/2 ML VL IV ONE ×2 (15:30→18:30)
[2019-06-14] MEDS ORDERED: ASPirin 81 mg TAB PO ONE (15:30)
[2019-06-14] MEDS ORDERED: FUROSEMIDE 40 MG/4 ML VIAL IV ONE (15:30)
[2019-06-14 15:34] LABS: Basophils # (auto) 0 uL; Basophils % (auto) 0.4 % (0.0-2.0); Eosinophils # (auto) 0.1 uL; Eosinophils % (auto) 1.3 % (0.0-7.0); Hematocrit 41.5 % (36.0-46.0); Hemoglobin 14.1 g/dL (12.2-16.2); Lymphocytes # (auto) 1.2 uL; Lymphocytes % (auto) 14.2 % (10.0-50.0); Mean Corpuscular Hemoglobin 30.9 pg (28.0-32.0); Mean Corpuscular Hgb Conc. 33.9 g/dL (32.0-36.0); Mean Corpuscular Volume 91.3 fL (80.0-100.0); Monocytes # (auto) 0.5 uL; Neutrophils # (auto) 6.8 uL; Neutrophils % (auto) 78.1 % (37.0-80.0); Platelet Count (auto) 146 10^3/uL (140-450); Red Blood Cells 4.55 10^6/uL (4.0-5.20); Red Cell Distribution Width 16.2 % (11.8-14.3); White Blood Cell 8.7 10^3/uL (4.4-10.8)
[2019-06-14 15:54] LABS: Albumin 3.2 g/dL (3.4-5.0); Anion Gap 4 (5-15); Aspartate Aminotransferase 16 U/L (15-37); BUN/Creatinine Ratio 19.8; Blood Urea Nitrogen 20 mg/dL (7-18); Calcium 7.4 mg/dL (8.5-10.1); Carbon Dioxide 28 mmol/L (21-32); Chloride 109 mmol/L (98-107); GFR African American 70 mL/min; GFR Non-African American 58 mL/min; Glucose 186 mg/dL (74-106); Sodium 141 mmol/L (136-145)
[2019-06-14 15:59] LABS: Alanine Aminotransferase 22 U/L (13-56); Alkaline Phosphatase 92 U/L (45-117); Bilirubin, Total 1.2 mg/dL (0.2-1.0); Total Protein 6.8 g/dL (6.4-8.2)
[2019-06-14 16:39] LABS: Urine Bacteria FEW /hpf (None Seen); Urine Blood Negative /uL (Negative); Urine Specific Gravity 1.007 (1.001-1.035); Urine WBC 1 /hpf (0 - 5)
[2019-06-14] MEDS ORDERED: InsuLIN REG 1unit/0.01ml Soln (100units/ml) SC ONE (17:00)
[2019-06-14] MEDS ORDERED: MORPHINE SULF INJ 2 MG/ML SYRINGE 1ML IV PRN (17:00)
[2019-06-14] MEDS ORDERED: DEXTROSE (50%) 50ML SYRG IV ONE (17:00)
[2019-06-14] MEDS ORDERED: NITROGLYCERIN 0.4 MG SL TAB SL PRN (17:00)
[2019-06-14] MEDS ORDERED: ACCU-CHEK COMFORT CURVE STRIP VI ONE (17:00)
[2019-06-14] MEDS ORDERED: IODIXANOL 320MG/ML 100ML BTL IV ONE (17:08)
[2019-06-14] MEDS ORDERED: DEXTROSE (50%) 50ML SYRG IV PRN (17:30)
[2019-06-14] MEDS ORDERED: KETOROLAC TROMETH 15 mg/ml 1ML VL IV ONE (17:30)
[2019-06-14] MEDS ORDERED: diphenhdrAMINE HCL 50 MG/1 ML VL IV ONE (17:30)
[2019-06-14] MEDS: ACCU-CHEK COMFORT CURVE STRIP VI SCH ×2 (17:33→22:00)
[2019-06-14] MEDS: InsuLIN REG 1unit/0.01ml Soln (100units/ml) SC SCH ×2 (17:51→22:01)
[2019-06-14] MEDS: ALBUTEROL SULF 2.5 MG/0.5ML(0.5%) NEB SOLN NEB SCH ×2 (18:37→22:37)
[2019-06-14] MEDS: IPRATROPIUM BROM 0.5 MG/2.5ML INH SOL NEB SCH ×2 (18:37→22:37)
[2019-06-14 18:58] VITALS: BP 146/75
--- NOTE | 2019-06-14 20:41 | NUR ---
Telemetry admit from ER WILLISTOSHIA Pizano admitted to Telemetry unit after SBAR received. Patient oriented to Mendoza Andrade, primary RN, unit, room, bed, and unit policies regarding patient care and visiting hours. Patient now on continuous telemetry monitoring, tele box # [26] and telemetry reading on arrival to unit is [SR 86]. Patient placed on bedside oxygen, weighed by bedscale and encouraged to call if they need something. All questions and concerns addressed, patient verbalized understanding. Note: []
--- NOTE | 2019-06-14 21:38 | NUR ---
Called/paged Dr. MOONEY called re:PATIENT C/O PAIN AFTER PATIENT FELL 5 DAYS AGO, AND PATIENT REQUESTED TO HAVE SLEEPING PILL. 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 Continue care.
[2019-06-14 21:43] VITALS: BP 142/83
[2019-06-14] MEDS: methylPREDNISolone SOD SUCC 40 MG/ML VL IV SCH (22:00)
[2019-06-14] MEDS: HYDROcodone-ACET 5/325MG TAB PO PRN (22:01)
--- NOTE | 2019-06-14 22:01 | NUR ---
ACCU-CHECK, BS 406, RECHECKED IT IN 2 MINS, BS 357, INSULIN GIVEN ORDERED. CONTINUE TO MONITOR.
--- NOTE | 2019-06-14 22:20 | NUR ---
MRSA SWAB COLLECTED AND SENT.
[2019-06-14 22:45] VITALS: BP 147/83
--- NOTE | 2019-06-15 02:17 | NUR ---
PATIENT SLEEPING. NO S/S OF DISTRESS NOTED. CONTINUE CARE.
[2019-06-15] MEDS: HYDROcodone-ACET 5/325MG TAB PO PRN ×2 (03:58→10:14)
[2019-06-15 05:10] VITALS: BP 131/79
[2019-06-15] MEDS: IPRATROPIUM BROM 0.5 MG/2.5ML INH SOL NEB SCH ×3 (06:06→14:13)
[2019-06-15] MEDS: ALBUTEROL SULF 2.5 MG/0.5ML(0.5%) NEB SOLN NEB SCH ×3 (06:06→14:13)
[2019-06-15] MEDS: methylPREDNISolone SOD SUCC 40 MG/ML VL IV SCH ×2 (06:20→14:00)
[2019-06-15] MEDS: ACCU-CHEK COMFORT CURVE STRIP VI SCH ×2 (06:20→11:58)
[2019-06-15] MEDS: InsuLIN REG 1unit/0.01ml Soln (100units/ml) SC SCH ×2 (06:20→11:58)
--- NOTE | 2019-06-15 06:21 | NUR ---
ACCU-CHECK, BS 315. INSULIN GIVEN ORDERED. CONTINUE TO MONITOR.
[2019-06-15 06:38] LABS: BUN/Creatinine Ratio 26.1; Basophils # (auto) 0 uL; Basophils % (auto) 0.1 % (0.0-2.0); Calcium 7.9 mg/dL (8.5-10.1); Eosinophils # (auto) 0 uL; Hematocrit 38.2 % (36.0-46.0); Hemoglobin 12.9 g/dL (12.2-16.2); Lymphocytes # (auto) 0.4 uL; Lymphocytes % (auto) 2.8 % (10.0-50.0); Mean Corpuscular Hemoglobin 31.1 pg (28.0-32.0); Mean Corpuscular Hgb Conc. 33.7 g/dL (32.0-36.0); Mean Corpuscular Volume 92.3 fL (80.0-100.0); Monocytes # (auto) 0.7 uL; Monocytes % (auto) 4.3 % (0.0-12.0); Neutrophils # (auto) 14.2 uL; Neutrophils % (auto) 92.8 % (37.0-80.0); Nucleated Red Blood Cells % 0.1 %; Platelet Count (auto) 124 10^3/uL (140-450); Potassium 4.1 mmol/L (3.5-5.1); Red Blood Cells 4.14 10^6/uL (4.0-5.20); Red Cell Distribution Width 15.7 % (11.8-14.3); White Blood Cell 15.3 10^3/uL (4.4-10.8)
--- NOTE | 2019-06-15 07:20 | NUR ---
Opening Shift Note Assumed care of patient, awake and alert. No S/S of distress/SOB or pain. Instructed on POC and to call for assist PRN, will continue to monitor for changes Q1hr and PRN.
[2019-06-15 08:00] VITALS: BP 158/87
[2019-06-15 09:31] VITALS: BP 158/87
[2019-06-15] MEDS ORDERED: FUROSEMIDE 40 MG/4 ML VIAL IV SCH (10:00)
--- NOTE | 2019-06-15 10:01 | NUR ---
[facility] ss [facility] [place]
--- NOTE | 2019-06-15 12:00 | NUR ---
Critical Glucose Blood glucose 481 and then [address] Cisneros notified. Orders recieved. Addendum: 06/15/19 at 1510 by BRAXTON DICKERSON RN Per patient still okay to be discharged today once cardiac clearance obtained.
[2019-06-15] MEDS ORDERED: DEXTROSE (50%) 50ML SYRG IV PRN (12:15)
[2019-06-15 13:25] VITALS: BP 158/95
--- NOTE | 2019-06-15 14:00 | NUR ---
Cardiology Clearance Dr. Martin at bedside for cardiology consult. Patient cleared by cardiology.
--- NOTE | 2019-06-15 14:28 | NUR ---
Home 02 Home 02 delivered at bedside.
[2019-06-15] MEDS ORDERED: InsuLIN REG 1unit/0.01ml Soln (100units/ml) SC SCH ×2 (17:00→22:00)
[2019-06-15] MEDS ORDERED: ACCU-CHEK COMFORT CURVE STRIP VI SCH (17:00)
--- NOTE | 2019-06-15 17:02 | NUR ---
assessment Per consult patient requesting information about grief counseling. Daughter recently passed. Patient informed me her daughter in September 2018. Patient is still grieving her loss. I have provided emotional support to patient. Patient is coping well. I have also provided patient with resources for therapist and the 5 stages of grief. Patient was grateful and accepted resources. Addendum: 06/15/19 at 1706 by Mandy Barnard Amended: Links added.
--- NOTE | 2019-06-15 17:33 | NUR ---
Discharge from Tele Discharge instructions given as ordered. Encourage to follow up with PMD as instructed. All questions and concerns addressed. Patient verbalized understanding. Medication reconciliation form completed and copy given to patient. IV removed with catheter intact, pressure dressing applied. Telemetry unit returned to ICU. Patient taken to vehicle via wheelchair with all personal belongings, accompanied by staff and family member. No distress noted at time of departure.
== END 2019-06-15 17:30 | disposition home health service (06) | DRG 189 ==
LOC: ER 14:43 → TELE 14:44 → TELE-CENTR 20:25
PROVIDERS: ADMIT Internal Medicine; ATTEND Internal Medicine
DX: J96.21 Acute and chronic respiratory failure with hypoxia (principal); J44.1 Chronic obstructive pulmonary disease with (acute) exacerbation; I24.9 Acute ischemic heart disease, unspecified; I11.0 Hypertensive heart disease with heart failure; E78.5 Hyperlipidemia, unspecified; I25.10 Atherosclerotic heart disease of native coronary artery without angina pectoris; F41.9 Anxiety disorder, unspecified; E11.8 Type 2 diabetes mellitus with unspecified complications; I50.9 Heart failure, unspecified; I27.20 Pulmonary hypertension, unspecified; F17.210 Nicotine dependence, cigarettes, uncomplicated; Z82.49 Family history of ischemic heart disease and other diseases of the circulatory system; Z90.710 Acquired absence of both cervix and uterus; Z83.3 Family history of diabetes mellitus; Z88.0 Allergy status to penicillin; Z88.2 Allergy status to sulfonamides; Z91.041 Radiographic dye allergy status; Z88.8 Allergy status to other drugs, medicaments and biological substances
CPT/HCPCS: 36415; 36600; 71046; 71275; 80048; 80053; 81001; 82805; 82962; 83605; 83880; 84484; 85025; 87040; 87081; 93005; 93306; 94640; 96374; 96375; G0378; J1815; Q9967

== ENCOUNTER 2019-07-20 15:53 | Inpatient (IN) | payer OTHER, MEDICAID ==
[~2019-07-20] VITALS: Ht 157.5 cm; Wt 59.9 kg
[2019-07-20] MEDS ORDERED: SODIUM CHLORIDE 0.9% 1,000 ML IV ONE (16:42)
[2019-07-20] MEDS ORDERED: KETOROLAC TROMETH 30 MG/ML 1ML VIAL IV ONE (16:45)
[2019-07-20 18:00] LABS: Alanine Aminotransferase 37 U/L (13-56); Albumin 3.6 g/dL (3.4-5.0); Anion Gap 3 (5-15); Aspartate Aminotransferase 22 U/L (15-37); BUN/Creatinine Ratio 25.4; Blood Urea Nitrogen 18 mg/dL (7-18); Calcium 9.1 mg/dL (8.5-10.1); Carbon Dioxide 30 mmol/L (21-32); Chloride 109 mmol/L (98-107); GFR African American 105 mL/min; GFR Non-African American 86 mL/min; Glucose 131 mg/dL (74-106); Magnesium 2.1 mg/dL (1.6-2.6); Potassium 4.3 mmol/L (3.5-5.1); Sodium 142 mmol/L (136-145)
[2019-07-20 18:01] LABS: Basophils # (auto) 0 uL; Basophils % (auto) 0.5 % (0.0-2.0); Eosinophils # (auto) 0.2 uL; Eosinophils % (auto) 2.3 % (0.0-7.0); Hematocrit 45.6 % (36.0-46.0); Hemoglobin 15.1 g/dL (12.2-16.2); Lymphocytes # (auto) 1.4 uL; Lymphocytes % (auto) 17.3 % (10.0-50.0); Mean Corpuscular Hemoglobin 30.4 pg (28.0-32.0); Mean Corpuscular Hgb Conc. 33.1 g/dL (32.0-36.0); Mean Corpuscular Volume 91.9 fL (80.0-100.0); Monocytes # (auto) 0.5 uL; Monocytes % (auto) 6.1 % (0.0-12.0); Neutrophils % (auto) 73.8 % (37.0-80.0); Nucleated Red Blood Cells % 0.1 %; Platelet Count (auto) 220 10^3/uL (140-450); Red Blood Cells 4.97 10^6/uL (4.0-5.20); Red Cell Distribution Width 14.9 % (11.8-14.3); White Blood Cell 8.2 10^3/uL (4.4-10.8)
[2019-07-20 18:05] LABS: Alkaline Phosphatase 89 U/L (45-117); Bilirubin, Total 0.6 mg/dL (0.2-1.0); Total Protein 6.9 g/dL (6.4-8.2)
[2019-07-20 18:19] LABS: Urine Bacteria FEW /hpf (None Seen); Urine Blood Negative /uL (Negative); Urine Specific Gravity 1.012 (1.001-1.035); Urine WBC 1 /hpf (0 - 5)
[2019-07-20 18:25] LABS: INR 0.96 (0.9-1.15); Partial Thromboplastin Time 25.9 sec (23.64-32.05)
[2019-07-20] MEDS ORDERED: ALBUTEROL SULF 2.5 MG/0.5ML(0.5%) NEB SOLN NEB ONE ×2 (18:30→21:15)
[2019-07-20] MEDS ORDERED: IPRATROPIUM BROM 0.5 MG/2.5ML INH SOL NEB ONE ×2 (18:30→21:15)
[2019-07-20] MEDS ORDERED: IOHEXOL 350 MG/ML 100ML IJ ONE (18:55)
[2019-07-20] MEDS ORDERED: methylPREDNISolone SOD SUCC 125 MG/2 ML VL IV ONE (19:00)
[2019-07-20] MEDS ORDERED: diphenhdrAMINE HCL 50 MG/1 ML VL IV ONE (19:00)
[2019-07-20] MEDS ORDERED: ACETAMINOPHEN 325 MG TAB PO ONE (22:00)
[2019-07-20] MEDS: hydrALAZINE HCL 20 MG/ML VL IV PRN (22:17)
[2019-07-20] MEDS ORDERED: MORPHINE SULF INJ 2 MG/ML SYRINGE 1ML IV PRN (22:45)
[2019-07-20] MEDS ORDERED: NITROGLYCERIN 0.4 MG SL TAB SL PRN (22:45)
[2019-07-20] MEDS ORDERED: ONDANSETRON HCL 4 MG/2 ML VIAL IV PRN (22:45)
[2019-07-20] MEDS ORDERED: DEXTROSE (50%) 50ML SYRG IV PRN (22:45)
[2019-07-20 22:54] VITALS: BP 169/84
[2019-07-20] MEDS: MORPHINE SULFATE 4 MG/ML SYR/VIAL IV PRN (23:10)
[2019-07-21] VITALS (9 sets, daily range): BP systolic 149–176; BP diastolic 87–104
[2019-07-21] MEDS ORDERED: TEMAZEPAM 15 MG CAP PO ONE
--- NOTE | 2019-07-21 00:10 | NUR ---
Telemetry admit from ER TOSHIA PEDRO Harinder admitted to Telemetry unit. Patient oriented to SAMANTHA IRBY, primary RN, unit, room 233 and unit policies regarding patient care and visiting hours. Patient now on continuous telemetry monitoring, tele box #1. Patient placed on bedside oxygen, weighed by bedscale and encouraged to call if they need something. Pt is currently sitting up in bed with the rails up x2. Bed is locked in the lowest position. All questions and concerns addressed, patient verbalized understanding.
[2019-07-21] MEDS: LEVOFLOXACIN 500MG 100 ML IV SCH ×2 (00:44→23:46)
[2019-07-21] MEDS: IPRATROPIUM BROM 0.5 MG/2.5ML INH SOL NEB SCH ×6 (01:45→22:07)
[2019-07-21] MEDS: ALBUTEROL SULF 2.5 MG/0.5ML(0.5%) NEB SOLN NEB SCH ×6 (01:46→22:07)
[2019-07-21] MEDS: MORPHINE SULFATE 4 MG/ML SYR/VIAL IV PRN ×3 (03:16→14:17)
[2019-07-21] MEDS: PROMETHAZINE W/CODEINE 5 ML ORAL SYRUP PO PRN ×3 (03:23→21:33)
--- NOTE | 2019-07-21 04:40 | NUR ---
MRSA Sent to Lab
[2019-07-21] MEDS: methylPREDNISolone SOD SUCC 125 MG/2 ML VL IV SCH ×3 (05:33→21:31)
[2019-07-21] MEDS: hydrALAZINE HCL 20 MG/ML VL IV PRN ×2 (05:34→12:20)
[2019-07-21] MEDS: HYDROcodone-ACET 10/325MG TAB PO SCH ×2 (06:00→12:00)
[2019-07-21] MEDS: ACCU-CHEK COMFORT CURVE STRIP VI SCH ×4 (06:23→21:34)
[2019-07-21] MEDS: InsuLIN REG 1unit/0.01ml Soln (100units/ml) SC SCH ×3 (06:24→17:23)
--- NOTE | 2019-07-21 07:40 | NUR ---
OPENING SHIFT NOTE PATIENT AWAKE ALERT AND ORIENTED X4. COMPLAINS OF PAIN, WILL PROVIDE PAIN MEDICATIONS PRESCRIBED. DENIES SOB OR ANY DISTRESS. BED IN LOWEST LOCKED POSITION CALL LIGHT WITHIN REACH. WILL CONTINUE TO MONITOR
[2019-07-21 08:08] LABS: Basophils # (auto) 0 uL; Basophils % (auto) 0.2 % (0.0-2.0); Eosinophils # (auto) 0 uL; Hematocrit 43.1 % (36.0-46.0); Hemoglobin 14.5 g/dL (12.2-16.2); Lymphocytes # (auto) 0.4 uL; Lymphocytes % (auto) 6.7 % (10.0-50.0); Mean Corpuscular Hgb Conc. 33.8 g/dL (32.0-36.0); Mean Corpuscular Volume 91.8 fL (80.0-100.0); Monocytes # (auto) 0 uL; Monocytes % (auto) 0.7 % (0.0-12.0); Neutrophils # (auto) 4.8 uL; Neutrophils % (auto) 92.4 % (37.0-80.0); Nucleated Red Blood Cells % 0.2 %; Platelet Count (auto) 204 10^3/uL (140-450); Red Blood Cells 4.69 10^6/uL (4.0-5.20); Red Cell Distribution Width 14.7 % (11.8-14.3); White Blood Cell 5.2 10^3/uL (4.4-10.8)
[2019-07-21] MEDS: ASPirin-EC 81 mg tab PO SCH (08:24)
[2019-07-21] MEDS: POTASSIUM CHL 20 Meq TABLET PO SCH (08:25)
[2019-07-21] MEDS: METOPROLOL SUCCINATE XL 50 MG TAB PO SCH ×2 (08:25→21:33)
[2019-07-21] MEDS: FUROSEMIDE 40 MG TAB PO SCH (08:26)
[2019-07-21] MEDS: amLODIPine BESYLATE 5 MG TAB PO SCH (08:26)
[2019-07-21] MEDS ORDERED: ENOXAPARIN SOD 40 MG/0.4 ML SYRINGE SC SCH (10:00)
--- NOTE | 2019-07-21 13:00 | NUR ---
DISCHARGE HELD FOR TOMORROW SPOKE TO MD ON TELEPHONE HE VERBALIZED TO HOLD DISCHARGE UNTIL TOMORROW. WILL CHANGE ORDERS DIRECTED
[2019-07-21] MEDS: LORazepam 0.5 MG TAB PO SCH ×2 (14:17→21:32)
[2019-07-21] MEDS ORDERED: SODIUM CHLORIDE 0.9% 1,000 ML IV SCH (16:04)
--- NOTE | 2019-07-21 19:10 | NUR ---
END OF SHIFT NOTE PATIENT ALERT AND ORIENTED X4 DENIES ANY PAIN SOB OR ANY DISTRESS. BED IN LOWEST LOCKED POSITION CALL LIGHT WITHIN REACH ENDORSE CARE TO NOC RN
--- NOTE | 2019-07-21 19:15 | NUR ---
Opening Shift Note Received report from joseluis Moody RN. Assumed care of patient, awake and alert. No S/S of distress/SOB or pain. Instructed on POC and to call for assist PRN, will continue to monitor for changes Q1hr and PRN. Bed placed in lowest position, bed alarm turned on and call lights within reach.
[2019-07-21] MEDS ORDERED: InsuLIN REG 1unit/0.01ml Soln (100units/ml) SC SCH (22:00)
[2019-07-21] MEDS ORDERED: ATORVASTATIN 20 MG TAB PO SCH (22:00)
--- NOTE | 2019-07-21 23:30 | NUR ---
REMINDED PATIENT OF THE NOTHING BY MOUTH STATUS RELATED TO LEFT HEART CATH PROCEDURE TOMORROW. PATIENT VERBALIZED UNDERSTANDING.
[2019-07-22] MEDS: ALBUTEROL SULF 2.5 MG/0.5ML(0.5%) NEB SOLN NEB SCH ×5 (02:22→19:04)
[2019-07-22] MEDS: IPRATROPIUM BROM 0.5 MG/2.5ML INH SOL NEB SCH ×5 (02:22→19:05)
--- NOTE | 2019-07-22 04:00 | NUR ---
ROUNDS PATIENT REFUSED TO HAVE IV PLACED THIS MORNING. WILL TRY AGAIN LATER.
[2019-07-22] MEDS: MORPHINE SULFATE 4 MG/ML SYR/VIAL IV PRN ×2 (04:09→15:17)
--- NOTE | 2019-07-22 04:22 | NUR ---
EKG DONE. PATIENT TOLERATED WELL.
[2019-07-22 05:27] VITALS: BP 127/69
--- NOTE | 2019-07-22 06:00 | NUR ---
CHLORHEXIDINE WIPES ADMINISTERED.
[2019-07-22] MEDS: methylPREDNISolone SOD SUCC 125 MG/2 ML VL IV SCH ×2 (06:30→13:57)
[2019-07-22] MEDS: LORazepam 0.5 MG TAB PO SCH ×2 (06:31→13:56)
[2019-07-22] MEDS: ACCU-CHEK COMFORT CURVE STRIP VI SCH ×3 (06:31→17:10)
[2019-07-22] MEDS: InsuLIN REG 1unit/0.01ml Soln (100units/ml) SC SCH ×3 (06:32→17:10)
[2019-07-22 06:39] LABS: Basophils # (auto) 0 uL; Basophils % (auto) 0.2 % (0.0-2.0); Eosinophils # (auto) 0 uL; Hematocrit 42.3 % (36.0-46.0); Lymphocytes # (auto) 0.5 uL; Lymphocytes % (auto) 4.1 % (10.0-50.0); Mean Corpuscular Hemoglobin 30.4 pg (28.0-32.0); Mean Corpuscular Volume 92.1 fL (80.0-100.0); Monocytes # (auto) 0.3 uL; Monocytes % (auto) 2.1 % (0.0-12.0); Neutrophils # (auto) 12.3 uL; Neutrophils % (auto) 93.6 % (37.0-80.0); Platelet Count (auto) 224 10^3/uL (140-450); Red Blood Cells 4.59 10^6/uL (4.0-5.20); Red Cell Distribution Width 15.3 % (11.8-14.3); White Blood Cell 13.1 10^3/uL (4.4-10.8)
[2019-07-22 06:47] LABS: BUN/Creatinine Ratio 30.1; Calcium 8.6 mg/dL (8.5-10.1); Potassium 4.6 mmol/L (3.5-5.1)
[2019-07-22 06:49] LABS: INR 1.01 (0.9-1.15); Partial Thromboplastin Time 25.4 sec (23.64-32.05)
--- NOTE | 2019-07-22 07:30 | NUR ---
OPENING SHIFT NOTE PATIENT LAYING IN BED WITH EYES CLOSED CHEST RISE AND FALL VISUALIZED SHOWING NO S/S OF DISTRESS OR SOB. BED IN LOWEST POSITION CALL LIGHT WITHIN REACH. BOARD UPDATED. WILL CONTINUE TO MONITOR
[2019-07-22] MEDS ORDERED: IOHEXOL 350 MG/ML 100ML IJ ONE ×2 (08:27→09:53)
[2019-07-22] MEDS ORDERED: LIDOCAINE 2%HCL (LOCAL ANESTH.) INJ 20ML MDV ONE (08:27)
--- NOTE | 2019-07-22 08:50 | NUR ---
off unit taken to quality lab technician at this time. iv to left forearm patent, asymptomatic and intact. patient denied feeling any pain, sob or distress.
[2019-07-22 08:58] VITALS: BP 166/91
[2019-07-22] MEDS ORDERED: fentaNYL CITRATE 100 MCG/2 ML VL ONE (09:09)
[2019-07-22] MEDS ORDERED: MIDAZOLAM HCL 1MG/1ML-2 ML VIAL ONE (09:09)
[2019-07-22] MEDS ORDERED: ANGIOMAX 250 MG VIAL IV ONE (09:09)
[2019-07-22] MEDS ORDERED: methylPREDNISolone SOD SUCC 125 MG/2 ML VL ONE (09:09)
[2019-07-22] MEDS ORDERED: diphenhdrAMINE HCL 50 MG/1 ML VL ONE (09:09)
[2019-07-22] MEDS ORDERED: SODIUM CHL 0.9% 0 ML ONE (09:10)
[2019-07-22] MEDS ORDERED: FAMOTIDINE (10MG/ML) 2ML VL IV ONE (09:11)
[2019-07-22] MEDS: ASPirin-EC 81 mg tab PO SCH (10:00)
--- NOTE | 2019-07-22 10:40 | NUR ---
PT Patient down at microbiological laboratory technician during morning PT visit for a procedure as per ÁNGEL Moody. Addendum: 07/22/19 at 1041 by JAMEEL GARCIA PTT Amended: Links added.
--- NOTE | 2019-07-22 12:00 | NUR ---
PATIENT BACK ON UNIT ASSESSED RIGHT GROIN, DRESSING DRY AND INTACT NO HEMATOMA NOTED. PATIENT EDUCATED TO STAY FLAT UNTIL 1630. PATIENT VERBALIZED UNDERSTANDING. BLOOD PRESSURE UPON ARRIVAL 163/96MMHG HEART RATE 94BPM TEMP 98.0F O298% ON 2L NASAL CANULA. WILL PROVIDE BLOOD PRESSURE MEDICATIONS PRESCRIBED. WILL CONTINUE TO MONITOR
[2019-07-22] MEDS: POTASSIUM CHL 20 Meq TABLET PO SCH (12:03)
[2019-07-22] MEDS: FUROSEMIDE 40 MG TAB PO SCH (12:03)
[2019-07-22] MEDS: amLODIPine BESYLATE 5 MG TAB PO SCH (12:04)
[2019-07-22] MEDS: METOPROLOL SUCCINATE XL 50 MG TAB PO SCH (12:04)
[2019-07-22] MEDS: PROMETHAZINE W/CODEINE 5 ML ORAL SYRUP PO PRN (12:04)
[2019-07-22 12:28] VITALS: BP 194/103
--- NOTE | 2019-07-22 14:31 | NUR ---
PT Physical therapy deferred as per request of ÁNGEL Moody during afternoon visit. Addendum: 07/22/19 at 1432 by JAMEEL GARCIA PTT Amended: Links added.
[2019-07-22] MEDS ORDERED: RANOLAZINE ER 500 MG TAB PO ONE (14:45)
[2019-07-22 17:00] VITALS: BP 155/92
--- NOTE | 2019-07-22 18:44 | NUR ---
PT REFUSED [place], READY TO GO HOME
--- NOTE | 2019-07-22 19:19 | NUR ---
DISCHARGE NOTE PATIENT ALERT AND OREINTED X4 DENIES ANY PAIN SOB OR DISTRESS.ALL DISCHARGE INSTRUCTIONS GIVEN ALL QUESTIONS AND CONCERNS ADDRESSED AT THIS TIME PATIENT VERBALIZED UNDERSTANDING. IV REMOVED PRESSURE DRESSING APPLIED PATIENT TOLERATED WELL. TELE BOX REMOVED CLEANED AND SENT TO ICU IN BUBBLE WRAP. PATIENT ASSISTED TO PERSONAL VEHICLE WITH DAUGHTER USING A WHEELCHAIR
== END 2019-07-22 19:34 | disposition home or self-care (01) | DRG 287 ==
LOC: ER 15:53 → TELE 15:54 → TELE-EAST 23:43
PROVIDERS: ADMIT Hospitalist; ATTEND Hospitalist
PROC: 4A023N7 Measurement of Cardiac Sampling and Pressure, Left Heart, Percutaneous Approach (ICD-10-PCS; principal; 2019-07-22)
PROC: B2111ZZ Fluoroscopy of Multiple Coronary Arteries using Low Osmolar Contrast (ICD-10-PCS; 2019-07-22)
PROC: B2151ZZ Fluoroscopy of Left Heart using Low Osmolar Contrast (ICD-10-PCS; 2019-07-22)
DX: R07.89 Other chest pain (principal); J96.10 Chronic respiratory failure, unspecified whether with hypoxia or hypercapnia; I50.22 Chronic systolic (congestive) heart failure; E11.9 Type 2 diabetes mellitus without complications; E78.5 Hyperlipidemia, unspecified; I11.0 Hypertensive heart disease with heart failure; F41.9 Anxiety disorder, unspecified; F32.9 Major depressive disorder, single episode, unspecified; G89.29 Other chronic pain; J43.9 Emphysema, unspecified; F17.210 Nicotine dependence, cigarettes, uncomplicated; I70.0 Atherosclerosis of aorta; Z88.8 Allergy status to other drugs, medicaments and biological substances; Z88.0 Allergy status to penicillin; Z88.2 Allergy status to sulfonamides; Z91.041 Radiographic dye allergy status; Z90.710 Acquired absence of both cervix and uterus; Z90.49 Acquired absence of other specified parts of digestive tract; Z83.3 Family history of diabetes mellitus; Z82.49 Family history of ischemic heart disease and other diseases of the circulatory system; Z79.899 Other long term (current) drug therapy; Z99.81 Dependence on supplemental oxygen
CPT/HCPCS: 36415; 71046; 71275; 73080; 80048; 80053; 81001; 82962; 83735; 83880; 84443; 84484; 85025; 85379; 85610; 85730; 86850; 86900; 86901; 87081; 93005; 93458; 94640; 94761; 96361; 96374; 96375; G0378; J1815; J1885; J1956; J2250; J3490

== ENCOUNTER 2019-07-30 16:02 | Emergency (ER) | payer OTHER, MEDICAID ==
[~2019-07-30] VITALS: Ht 157.5 cm; Wt 57.2 kg
[2019-07-30] MEDS ORDERED: SODIUM CHLORIDE 0.9% 1,000 ML IV ONE (16:42)
[2019-07-30] MEDS ORDERED: methylPREDNISolone SOD SUCC 125 MG/2 ML VL IV ONE ×2 (16:45→22:15)
[2019-07-30] MEDS ORDERED: IPRATROPIUM BROM 0.5 MG/2.5ML INH SOL NEB ONE ×2 (16:45→22:15)
[2019-07-30] MEDS ORDERED: ALBUTEROL SULF 2.5 MG/0.5ML(0.5%) NEB SOLN NEB ONE ×2 (16:45→22:15)
[2019-07-30 17:51] LABS: Urine WBC None Seen /hpf (0 - 5)
[2019-07-30 18:13] LABS: Urine Bacteria FEW /hpf (None Seen); Urine Blood Negative /uL (Negative); Urine Specific Gravity 1.013 (1.001-1.035)
[2019-07-30 18:16] LABS: Albumin 2.9 g/dL (3.4-5.0); Anion Gap 4 (5-15); Basophils # (auto) 0.1 uL; Basophils % (auto) 0.6 % (0.0-2.0); Blood Urea Nitrogen 17 mg/dL (7-18); Calcium 8.2 mg/dL (8.5-10.1); Carbon Dioxide 28 mmol/L (21-32); Chloride 110 mmol/L (98-107); Eosinophils # (auto) 0.1 uL; Eosinophils % (auto) 1.6 % (0.0-7.0); Glucose 139 mg/dL (74-106); Hematocrit 41.5 % (36.0-46.0); Lymphocytes # (auto) 1.5 uL; Lymphocytes % (auto) 15.7 % (10.0-50.0); Magnesium 2.4 mg/dL (1.6-2.6); Mean Corpuscular Hgb Conc. 33.8 g/dL (32.0-36.0); Mean Corpuscular Volume 91.7 fL (80.0-100.0); Monocytes # (auto) 0.6 uL; Monocytes % (auto) 6.2 % (0.0-12.0); Neutrophils # (auto) 7.1 uL; Neutrophils % (auto) 75.9 % (37.0-80.0); Nucleated Red Blood Cells % 0.2 %; Platelet Count (auto) 296 10^3/uL (140-450); Potassium 4.3 mmol/L (3.5-5.1); Red Blood Cells 4.53 10^6/uL (4.0-5.20); Red Cell Distribution Width 15.4 % (11.8-14.3); Sodium 142 mmol/L (136-145); White Blood Cell 9.3 10^3/uL (4.4-10.8)
[2019-07-30 18:24] LABS: Alanine Aminotransferase 47 U/L (13-56); Alkaline Phosphatase 76 U/L (45-117); Aspartate Aminotransferase 27 U/L (15-37); Bilirubin, Total 0.3 mg/dL (0.2-1.0); GFR African American 100 mL/min; GFR Non-African American 82 mL/min
[2019-07-30] MEDS ORDERED: HYDROcodone-ACET 5/325MG TAB PO ONE (18:30)
[2019-07-30] MEDS ORDERED: AZITHROMYCIN 500MG/ 250ML 250 ML IV ONE (18:45)
[2019-07-30] MEDS ORDERED: IOHEXOL 350 MG/ML 100ML IJ ONE (23:54)
[2019-07-31] MEDS ORDERED: FUROSEMIDE 40 MG/4 ML VIAL IV ONE
[2019-07-31] MEDS ORDERED: cloNIDine HCL 0.1 MG TAB PO ONE (01:00)
[2019-07-31] MEDS ORDERED: HYDROcodone-ACET 5/325MG TAB PO ONE (01:15)
[2019-07-31 01:50] VITALS: BP 141/81
== END 2019-07-31 02:07 | disposition home or self-care (01) ==
LOC: ER 16:08
DX: J44.1 Chronic obstructive pulmonary disease with (acute) exacerbation (principal); E11.65 Type 2 diabetes mellitus with hyperglycemia; I11.0 Hypertensive heart disease with heart failure; I50.9 Heart failure, unspecified; E44.0 Moderate protein-calorie malnutrition; F17.210 Nicotine dependence, cigarettes, uncomplicated; Z68.23 Body mass index [BMI] 23.0-23.9, adult; Z90.710 Acquired absence of both cervix and uterus
CPT/HCPCS: 36415; 71046; 80053; 81001; 83735; 84484; 85025; 85379; 94640; 94761; 96361; 96365; 96366; 96375; 96376; 99284; J0456; J2930; J7030; J7611; J7644

== ENCOUNTER 2019-08-02 16:09 | Emergency (ER) | payer OTHER, MEDICAID ==
[~2019-08-02] VITALS: Ht 157.5 cm; Wt 57.2 kg
[2019-08-02 17:47] LABS: Basophils # (auto) 0.1 uL; Basophils % (auto) 0.5 % (0.0-2.0); Eosinophils # (auto) 0.2 uL; Eosinophils % (auto) 1.3 % (0.0-7.0); Hematocrit 44.8 % (36.0-46.0); Hemoglobin 14.7 g/dL (12.2-16.2); Lymphocytes # (auto) 2.4 uL; Lymphocytes % (auto) 17.3 % (10.0-50.0); Mean Corpuscular Hemoglobin 30.1 pg (28.0-32.0); Mean Corpuscular Hgb Conc. 32.9 g/dL (32.0-36.0); Mean Corpuscular Volume 91.5 fL (80.0-100.0); Monocytes # (auto) 0.8 uL; Monocytes % (auto) 5.7 % (0.0-12.0); Neutrophils # (auto) 10.6 uL; Neutrophils % (auto) 75.2 % (37.0-80.0); Nucleated Red Blood Cells % 0.1 %; Platelet Count (auto) 338 10^3/uL (140-450); Red Blood Cells 4.89 10^6/uL (4.0-5.20); Red Cell Distribution Width 15.2 % (11.8-14.3); White Blood Cell 14.1 10^3/uL (4.4-10.8)
[2019-08-02 18:09] LABS: Alanine Aminotransferase 88 U/L (13-56); Albumin 3.3 g/dL (3.4-5.0); Anion Gap 5 (5-15); Aspartate Aminotransferase 36 U/L (15-37); BUN/Creatinine Ratio 22.1; Blood Urea Nitrogen 15 mg/dL (7-18); Carbon Dioxide 30 mmol/L (21-32); Chloride 108 mmol/L (98-107); GFR African American 110 mL/min; GFR Non-African American 91 mL/min; Glucose 53 mg/dL (74-106); Magnesium 2.3 mg/dL (1.6-2.6); Potassium 3.9 mmol/L (3.5-5.1); Sodium 143 mmol/L (136-145)
[2019-08-02 18:13] LABS: Alkaline Phosphatase 72 U/L (45-117); Bilirubin, Total 0.3 mg/dL (0.2-1.0); Total Protein 6.4 g/dL (6.4-8.2)
[2019-08-02] MEDS ORDERED: ALBUTEROL SULF 2.5 MG/0.5ML(0.5%) NEB SOLN NEB ONE (20:30)
[2019-08-02] MEDS ORDERED: IPRATROPIUM BROM 0.5 MG/2.5ML INH SOL NEB ONE (20:30)
[2019-08-02] MEDS ORDERED: FUROSEMIDE 20 MG/2 ML VIAL IV ONE (20:30)
[2019-08-02] MEDS ORDERED: ASPirin 81 mg TAB PO ONE (20:30)
[2019-08-02 21:12] LABS: INR < 0.93 (0.9-1.15); Partial Thromboplastin Time 25.4 sec (23.64-32.05)
[2019-08-02] MEDS ORDERED: HYDROcodone-ACET 5/325MG TAB PO ONE (21:30)
[2019-08-02 22:45] LABS: Urine Bacteria NONE SEEN /hpf (None Seen); Urine Blood Negative /uL (Negative); Urine Specific Gravity 1.014 (1.001-1.035); Urine WBC 3 /hpf (0 - 5)
[2019-08-03] MEDS ORDERED: InsuLIN REG 1unit/0.01ml Soln (100units/ml) IV ONE
[2019-08-03] MEDS ORDERED: cloNIDine HCL 0.1 MG TAB PO ONE (00:15)
[2019-08-03] MEDS ORDERED: IPRATROPIUM BROM 0.5 MG/2.5ML INH SOL HHN ONE (04:15)
[2019-08-03] MEDS ORDERED: ALBUTEROL SULF 2.5 MG/0.5ML(0.5%) NEB SOLN HHN ONE (04:15)
[2019-08-03] MEDS ORDERED: methylPREDNISolone SOD SUCC 125 MG/2 ML VL IV ONE (04:15)
[2019-08-03] MEDS ORDERED: HYDROcodone-ACET 5/325MG TAB PO ONE (10:45)
[2019-08-03 11:00] VITALS: BP 144/87
== END 2019-08-03 11:24 | disposition home or self-care (01) ==
LOC: ER 16:09
DX: J44.1 Chronic obstructive pulmonary disease with (acute) exacerbation (principal); I11.0 Hypertensive heart disease with heart failure; I50.9 Heart failure, unspecified; G43.909 Migraine, unspecified, not intractable, without status migrainosus; E11.65 Type 2 diabetes mellitus with hyperglycemia; F17.210 Nicotine dependence, cigarettes, uncomplicated; Z90.49 Acquired absence of other specified parts of digestive tract; Z90.710 Acquired absence of both cervix and uterus
CPT/HCPCS: 36415; 71046; 80053; 81001; 82010; 82962; 83735; 83880; 84443; 84484; 85025; 85379; 85610; 85730; 93005; 94640; 96374; 96375; 99284; J1815; J1940; J2930; J7611; J7644

== ENCOUNTER 2019-08-19 14:19 | Emergency (ER) | payer OTHER, MEDICAID ==
[~2019-08-19] VITALS: Ht 154.9 cm; Wt 57.2 kg
[2019-08-19] MEDS ORDERED: cloNIDine HCL 0.1 MG TAB ONE (14:37)
[2019-08-19] MEDS ORDERED: cloNIDine HCL 0.1 MG TAB PO ONE (14:45)
[2019-08-19] MEDS ORDERED: ONDANSETRON HCL 4 MG/2 ML VIAL IV ONE (19:15)
[2019-08-19] MEDS ORDERED: MORPHINE SULFATE 4 MG/ML SYR/VIAL IV ONE (19:15)
[2019-08-19 19:32] LABS: Basophils # (auto) 0 uL; Basophils % (auto) 0.5 % (0.0-2.0); Eosinophils # (auto) 0.2 uL; Eosinophils % (auto) 2.3 % (0.0-7.0); Hematocrit 42.7 % (36.0-46.0); Hemoglobin 14.3 g/dL (12.2-16.2); Lymphocytes # (auto) 1.8 uL; Lymphocytes % (auto) 23.1 % (10.0-50.0); Mean Corpuscular Hemoglobin 30.4 pg (28.0-32.0); Mean Corpuscular Hgb Conc. 33.5 g/dL (32.0-36.0); Mean Corpuscular Volume 90.8 fL (80.0-100.0); Monocytes # (auto) 0.5 uL; Neutrophils # (auto) 5.2 uL; Neutrophils % (auto) 67.1 % (37.0-80.0); Nucleated Red Blood Cells % 0.1 %; Platelet Count (auto) 181 10^3/uL (140-450); Red Cell Distribution Width 14.5 % (11.8-14.3); White Blood Cell 7.7 10^3/uL (4.4-10.8)
[2019-08-19 19:38] LABS: INR 0.98 (0.9-1.15); Partial Thromboplastin Time 24.5 sec (23.64-32.05)
[2019-08-19 19:45] LABS: Albumin 3.4 g/dL (3.4-5.0); Anion Gap 4 (5-15); Blood Urea Nitrogen 16 mg/dL (7-18); Calcium 8.6 mg/dL (8.5-10.1); Carbon Dioxide 30 mmol/L (21-32); Chloride 108 mmol/L (98-107); Glucose 58 mg/dL (74-106); Potassium 3.7 mmol/L (3.5-5.1); Sodium 142 mmol/L (136-145)
[2019-08-19 19:52] LABS: Alanine Aminotransferase 49 U/L (13-56); Alkaline Phosphatase 65 U/L (45-117); Aspartate Aminotransferase 24 U/L (15-37); BUN/Creatinine Ratio 22.9; Bilirubin, Total 0.6 mg/dL (0.2-1.0); GFR African American 106 mL/min; GFR Non-African American 88 mL/min; Total Protein 6.2 g/dL (6.4-8.2)
[2019-08-19 20:29] VITALS: BP 140/90
[2019-08-19] MEDS ORDERED: ALBUTEROL SULF 2.5 MG/0.5ML(0.5%) NEB SOLN NEB ONE (21:00)
[2019-08-19] MEDS ORDERED: IPRATROPIUM BROM 0.5 MG/2.5ML INH SOL NEB ONE (21:00)
== END 2019-08-19 21:02 | disposition home or self-care (01) ==
LOC: ER 14:29
DX: R51 Headache (principal); I11.0 Hypertensive heart disease with heart failure; I50.9 Heart failure, unspecified; J44.9 Chronic obstructive pulmonary disease, unspecified; F17.210 Nicotine dependence, cigarettes, uncomplicated; Z90.710 Acquired absence of both cervix and uterus
CPT/HCPCS: 36415; 70450; 71045; 80053; 83735; 83880; 84484; 85025; 85610; 85730; 93005; 94761; 96374; 96375; 99284; J2270; J2405

== ENCOUNTER 2019-10-13 16:26 | Emergency (ER) | payer OTHER, MEDICAID ==
[~2019-10-13] VITALS: Ht 157.5 cm; Wt 65.3 kg
[2019-10-13] MEDS ORDERED: FUROSEMIDE 40 MG/4 ML VIAL IV ONE (17:00)
[2019-10-13 17:36] LABS: Basophils # (auto) 0 uL; Basophils % (auto) 0.4 % (0.0-2.0); Eosinophils # (auto) 0.2 uL; Eosinophils % (auto) 2.2 % (0.0-7.0); Hematocrit 40.3 % (36.0-46.0); Hemoglobin 13.4 g/dL (12.2-16.2); Lymphocytes # (auto) 1.3 uL; Lymphocytes % (auto) 16.5 % (10.0-50.0); Mean Corpuscular Hemoglobin 30.9 pg (28.0-32.0); Mean Corpuscular Hgb Conc. 33.1 g/dL (32.0-36.0); Mean Corpuscular Volume 93.2 fL (80.0-100.0); Monocytes # (auto) 0.5 uL; Neutrophils # (auto) 5.9 uL; Neutrophils % (auto) 74.9 % (37.0-80.0); Nucleated Red Blood Cells % 0.1 %; Platelet Count (auto) 204 10^3/uL (140-450); Red Blood Cells 4.33 10^6/uL (4.0-5.20); Red Cell Distribution Width 14.5 % (11.8-14.3); White Blood Cell 7.9 10^3/uL (4.4-10.8)
[2019-10-13 17:41] LABS: INR 1.01 (0.9-1.15); Partial Thromboplastin Time 25.6 sec (23.64-32.05)
[2019-10-13 17:44] LABS: Alanine Aminotransferase 20 U/L (13-56); Albumin 3.4 g/dL (3.4-5.0); Anion Gap 3 (5-15); Aspartate Aminotransferase 15 U/L (15-37); BUN/Creatinine Ratio 25.6; Blood Urea Nitrogen 22 mg/dL (7-18); Calcium 8.4 mg/dL (8.5-10.1); Carbon Dioxide 29 mmol/L (21-32); Chloride 110 mmol/L (98-107); GFR African American 84 mL/min; GFR Non-African American 69 mL/min; Glucose 59 mg/dL (74-106); Potassium 4.7 mmol/L (3.5-5.1); Sodium 142 mmol/L (136-145)
[2019-10-13 17:49] LABS: Alkaline Phosphatase 70 U/L (45-117); Bilirubin, Total 0.5 mg/dL (0.2-1.0); Total Protein 6.4 g/dL (6.4-8.2)
[2019-10-13] MEDS ORDERED: LEVOFLOXACIN 500 MG TAB ONE (17:58)
[2019-10-13] MEDS ORDERED: IPRATROPIUM BROM 0.5 MG/2.5ML INH SOL NEB ONE (18:00)
[2019-10-13] MEDS ORDERED: AZITHROMYCIN 250 MG TAB PO ONE ×2 (18:00→18:11)
[2019-10-13] MEDS ORDERED: ALBUTEROL SULF 2.5 MG/0.5ML(0.5%) NEB SOLN NEB ONE (18:00)
[2019-10-13] MEDS ORDERED: ALBUTEROL SULF 2.5 MG/0.5ML(0.5%) NEB SOLN ONE (18:10)
[2019-10-13] MEDS ORDERED: IPRATROPIUM BROM 0.5 MG/2.5ML INH SOL ONE (18:10)
[2019-10-13 18:18] VITALS: BP 167/78
== END 2019-10-13 18:55 | disposition home or self-care (01) ==
LOC: ER 16:26
DX: I11.0 Hypertensive heart disease with heart failure (principal); I50.9 Heart failure, unspecified; J44.1 Chronic obstructive pulmonary disease with (acute) exacerbation; I25.2 Old myocardial infarction; Z90.710 Acquired absence of both cervix and uterus; M54.2 Cervicalgia
CPT/HCPCS: 36415; 71045; 80053; 83880; 84484; 85025; 85379; 85610; 85730; 93005; 94640; 99284; J7611; J7644

== ENCOUNTER 2019-10-14 11:17 | Emergency (ER) | payer OTHER, MEDICAID ==
[~2019-10-14] VITALS: Ht 157.5 cm; Wt 56.2 kg
[2019-10-14 11:33] VITALS: BP 153/86
[2019-10-14] MEDS ORDERED: ALBUTEROL SULF 2.5 MG/0.5ML(0.5%) NEB SOLN NEB ONE (11:45)
[2019-10-14] MEDS ORDERED: methylPREDNISolone SOD SUCC 125 MG/2 ML VL IM ONE (11:45)
[2019-10-14] MEDS ORDERED: IPRATROPIUM BROM 0.5 MG/2.5ML INH SOL NEB ONE (11:45)
== END 2019-10-14 13:05 | disposition home or self-care (01) ==
LOC: ER 11:17
DX: J44.1 Chronic obstructive pulmonary disease with (acute) exacerbation (principal); I11.0 Hypertensive heart disease with heart failure; I50.9 Heart failure, unspecified; E11.9 Type 2 diabetes mellitus without complications; I25.2 Old myocardial infarction; F17.200 Nicotine dependence, unspecified, uncomplicated; Z90.710 Acquired absence of both cervix and uterus
CPT/HCPCS: 93005; 94640; 96372; 99283; J2930; J7611; J7644

== ENCOUNTER 2019-11-29 23:15 | Emergency (ER) | payer OTHER, MEDICAID ==
[~2019-11-29] VITALS: Ht 160 cm; Wt 70.3 kg
[~2019-11-29 23:15] MED LIST changes: -METO25TA62 PO; +METO25TA93 PO
[2019-11-30 00:51] LABS: Basophils # (auto) 0.1 uL; Basophils % (auto) 0.4 % (0.0-2.0); Eosinophils # (auto) 0 uL; Eosinophils % (auto) 0.2 % (0.0-7.0); Hematocrit 38.9 % (36.0-46.0); Hemoglobin 12.8 g/dL (12.2-16.2); Lymphocytes # (auto) 0.3 uL; Lymphocytes % (auto) 2.2 % (10.0-50.0); Mean Corpuscular Hemoglobin 30.3 pg (28.0-32.0); Mean Corpuscular Hgb Conc. 32.9 g/dL (32.0-36.0); Mean Corpuscular Volume 92.1 fL (80.0-100.0); Monocytes # (auto) 0.3 uL; Monocytes % (auto) 2.2 % (0.0-12.0); Nucleated Red Blood Cells % 0.1 %; Platelet Count (auto) 298 10^3/uL (140-450); Red Blood Cells 4.22 10^6/uL (4.0-5.20); Red Cell Distribution Width 14.1 % (11.8-14.3); White Blood Cell 13.6 10^3/uL (4.4-10.8)
[2019-11-30 01:06] LABS: Partial Thromboplastin Time 23.9 sec (23.64-32.05)
[2019-11-30 01:10] LABS: Albumin 2.4 g/dL (3.4-5.0); Anion Gap 5 (5-15); Blood Urea Nitrogen 23 mg/dL (7-18); Calcium 8.1 mg/dL (8.5-10.1); Carbon Dioxide 31 mmol/L (21-32); Chloride 98 mmol/L (98-107); Potassium 4.7 mmol/L (3.5-5.1); Sodium 134 mmol/L (136-145)
[2019-11-30 01:12] LABS: Alanine Aminotransferase 54 U/L (13-56); Aspartate Aminotransferase 17 U/L (15-37); GFR African American 61 mL/min; GFR Non-African American 50 mL/min; Total Protein 5.6 g/dL (6.4-8.2)
[2019-11-30 01:19] LABS: Alkaline Phosphatase 151 U/L (45-117); Bilirubin, Total 0.4 mg/dL (0.2-1.0)
[2019-11-30 01:24] LABS: BUN/Creatinine Ratio 20.2
[2019-11-30 01:26] LABS: Glucose 634 mg/dL (74-106)
[2019-11-30] MEDS ORDERED: SODIUM CHLORIDE 0.9% 500 ML IV ONE (02:00)
[2019-11-30] MEDS ORDERED: InsuLIN REG 1unit/0.01ml Soln (100units/ml) IV ONE (02:00)
[2019-11-30] MEDS ORDERED: HYDROcodone-ACET 5/325MG TAB PO ONE (03:30)
[2019-11-30] MEDS ORDERED: methylPREDNISolone SOD SUCC 125 MG/2 ML VL IV ONE (04:30)
[2019-11-30] MEDS ORDERED: IPRATROPIUM BROM 0.5 MG/2.5ML INH SOL NEB ONE (04:30)
[2019-11-30] MEDS ORDERED: ALBUTEROL SULF 2.5 MG/0.5ML(0.5%) NEB SOLN NEB ONE (04:30)
[2019-11-30] MEDS ORDERED: FUROSEMIDE 20 MG/2 ML VIAL IV ONE (04:45)
[2019-11-30 04:48] LABS: Urine Bacteria FEW /hpf (None Seen); Urine Blood Negative /uL (Negative); Urine WBC 12 /hpf (0 - 5)
[2019-11-30 05:49] VITALS: BP 179/90
== END 2019-11-30 06:44 | disposition home or self-care (01) ==
LOC: ER 23:15 → EDBD 23:15 → ER 11-30 06:44
DX: J44.1 Chronic obstructive pulmonary disease with (acute) exacerbation (principal); F41.9 Anxiety disorder, unspecified; I11.0 Hypertensive heart disease with heart failure; I50.9 Heart failure, unspecified; E11.9 Type 2 diabetes mellitus without complications; I25.2 Old myocardial infarction
CPT/HCPCS: 36415; 36600; 71045; 80053; 81001; 82805; 82962; 83880; 84484; 85025; 85610; 85730; 93005; 94640; 96374; 96375; 99283; J1815; J1940; J2930; J7611; J7644